=== PATIENT | female | born 1950 | race Caucasian/White ===

== ENCOUNTER → 2018-10-30 | Outpatient (CLI) | payer MEDICARE ==
[2018-10-31 14:29] LABS: Stool Occult Bld Immuno 1 Negative (NEGATIVE)
== END | disposition home or self-care (01) ==
LOC: LAB SHORT 18:20 → LAB 18:20
PROVIDERS: Family Medicine
DX: Z12.11 Encounter for screening for malignant neoplasm of colon (principal)
CPT/HCPCS: G0328

== ENCOUNTER 2021-04-09 04:58 | Inpatient (IN) | payer MEDICARE ==
[~2021-04-09] VITALS: Ht 162.6 cm; Wt 74.4 kg
[2021-04-09 05:28] LABS: BASOPHILS ABSOLUTE AUTO 0.13 K/mm3 (0.00-0.23); BASOPHILS PERCENT AUTO 1 % (0-2); EOSINOPHILS ABSOLUTE AUTO 1.83 K/mm3 (0.00-0.68); EOSINOPHILS PERCENT AUTO 16 % (0-6); Hematocrit 43.2 % (33.0-51.0); IMMATURE GRAN ABSOLUTE AUTO 0.03 K/mm3 (0.00-0.10); IMMATURE GRAN PERCENT AUTO 0 % (0-1); LYMPHOCYTES PERCENT AUTO 33 % (21-46); MONOCYTES ABSOLUTE AUTO 0.83 K/mm3 (0.16-1.47); MONOCYTES PERCENT AUTO 7 % (4-13); Mean Corpuscular HGB 30.5 pg (26.0-34.0); Mean Corpuscular HGB Conc 34.7 g/dL (31.5-36.5); Mean Corpuscular Volume 88 fL (80-100); Mean Platelet Volume 10.9 fL (9.1-12.4); NEUTROPHILS ABSOLUTE AUTO 5.03 K/mm3 (1.96-9.15); NEUTROPHILS PERCENT AUTO 43 % (41-73); Platelet Count 409 K/mm3 (150-400); RDW Coefficient Variation 14.3 % (11.7-14.2); RDW Standard Deviation 46.3 fL (35.1-46.3); Red Blood Cell Count 4.91 M/mm3 (3.80-5.20); White Blood Cell Count 11.65 K/mm3 (4.00-11.30)
[2021-04-09] MEDS ORDERED: Ventolin/Prove6.7 GM INH (05:33)
[2021-04-09] MEDS ORDERED: INCRUSE ELPT62.5MCG (05:34)
[2021-04-09] MEDS ORDERED: EUTHYROX88 MC1 PO (05:34)
[2021-04-09 05:45] LABS: Alanine Aminotransfer (ALT/SGP 26 U/L (12-78); Albumin, Blood 3.8 g/dL (3.4-5.0); Albumin/Globulin Ratio 0.9 (0.8-1.8); Alk Phos 86 U/L (50-136); Anion Gap 9 mmol/L (6-16); Aspartate Aminotrans (AST/SGOT 38 U/L (12-37); Bilirubin, Total 0.5 mg/dL (0.1-1.0); Blood Urea Nitrogen 6 mg/dL (8-24); Bun/Creatinine Ratio 10.9 (12.0-20.0); CO2, Blood 26 mmol/L (21-32); Calcium, Blood 9.6 mg/dL (8.5-10.1); Chloride, Blood 95 mmol/L (98-108); Creatinine, Blood 0.55 mg/dL (0.40-1.00); Globulin, Blood 4.2 g/dL (2.2-4.0); Glomerular Filtration Rate >60 (60-); Glucose, Blood 144 mg/dL (70-99); Potassium, Blood 4.7 mmol/L (3.5-5.5); Sodium, Blood 130 mmol/L (136-145); Troponin I 0.346 ng/mL (0.000-0.040)
[2021-04-09] MEDS ORDERED: Prinivil10 MG PO (05:49)
[2021-04-09 06:21] LABS: Influenza A, PCR NEGATIVE (NEGATIVE); Influenza B, PCR NEGATIVE (NEGATIVE); Resp Syncytial Virus, PCR NEGATIVE (NEGATIVE); SARS-Cov-2 (COVID-19) PCR, MMC NEGATIVE (NEGATIVE)
[2021-04-09 12:00] LABS: Base Excess Venous 0 mmol/L; Bicarbonate Venous 23.8 mmol/L (24.0-30.0); PCO2 Venous 49.2 mmHg (38-42); PO2 Venous 113 mmHg (38-42); pH Blood Venous 7.33 (7.34-7.37)
--- NOTE | 2021-04-09 18:44 | NUR ---
PT ARRIVED THIS AFTERNOON FROM ER WITH ACUTE RESP FAILURE. PT ARRIVES ON 4L 02 VIA NASAL CANNULA, WITH EXTENSIVE WHEEZING NOTED. PT A/O X3, COARSE COUGH NOTED. PT PLACED ON BIPAP UPON ARRIVAL SHE WAS TIRING ON NC. AT THE TIME OF THIS NOTE PT WITH 3L O2 VIA NC. SPO2 >95%. WHEEZING NOTED, PT STS THAT HER BREATHING FEELS "FINE" ON NASAL CANNULA, PT DOES APPEAR TO BE BREATHING EASIER THAN UPON ARRIVAL. PT ABLE TO TRANSFER TO BSC A SBA. VSS. PT WITH SUCTION FOR PRODUCTIVE COUGH.
--- NOTE | 2021-04-09 20:56 | NUR ---
ASSUMED CARE OF PATIENT AT APPROXIMATELY 1905 FROM MINI Coon RN. PATIENT ALERT AND ORIENTED X4; ONE ASSIST TO BSC. PATIENT DENIES PAIN, NUMBNESS, TINGLING, DIZZINESS AND NAUSEA. PATIENT REPORTS SHE HAS TO COUGH UP SPUTUM EVERY TIMES SHE GETS OUT OF BED AND SHORTNESS OF BREATH WORSENS. AUDIBLE WHEEZES HEARD FROM DOOR WAY AND EXP WHEEZES L/S; NO CHANGES FROM ADMIT. PATIENT PLACED BACK ON M-SERIES BIPAP AROUND 1999 FOR SLEEP. PIV S/L. NSR ON TELE; OXYGEN SATURATION ABOVE 90% ON 3LPM VIA NC OR BIPAP.
--- NOTE | 2021-04-09 21:25 | NUR ---
PATIENT CALLED TO REPORT MASK HURTS AND IS TOO MUCH; BACK ON NC; TAKING BREAK.
[2021-04-10 04:05] LABS: BASOPHILS ABSOLUTE AUTO 0.01 K/mm3 (0.00-0.23); BASOPHILS PERCENT AUTO 0 % (0-2); EOSINOPHILS PERCENT AUTO 0 % (0-6); Hematocrit 38.1 % (33.0-51.0); Hemoglobin 13.2 g/dL (11.5-16.0); IMMATURE GRAN ABSOLUTE AUTO 0.02 K/mm3 (0.00-0.10); IMMATURE GRAN PERCENT AUTO 0 % (0-1); LYMPHOCYTES PERCENT AUTO 10 % (21-46); MONOCYTES ABSOLUTE AUTO 0.15 K/mm3 (0.16-1.47); MONOCYTES PERCENT AUTO 1 % (4-13); Mean Corpuscular HGB 30.2 pg (26.0-34.0); Mean Corpuscular HGB Conc 34.6 g/dL (31.5-36.5); Mean Corpuscular Volume 87 fL (80-100); Mean Platelet Volume 10.9 fL (9.1-12.4); NEUTROPHILS ABSOLUTE AUTO 9.35 K/mm3 (1.96-9.15); NEUTROPHILS PERCENT AUTO 88 % (41-73); Platelet Count 341 K/mm3 (150-400); RDW Coefficient Variation 14.6 % (11.7-14.2); RDW Standard Deviation 46.5 fL (35.1-46.3); Red Blood Cell Count 4.37 M/mm3 (3.80-5.20); White Blood Cell Count 10.63 K/mm3 (4.00-11.30)
[2021-04-10 04:35] LABS: Albumin, Blood 3.5 g/dL (3.4-5.0); Anion Gap 9 mmol/L (6-16); Blood Urea Nitrogen 12 mg/dL (8-24); Bun/Creatinine Ratio 17.3 (12.0-20.0); CO2, Blood 26 mmol/L (21-32); Calcium, Blood 9.4 mg/dL (8.5-10.1); Chloride, Blood 96 mmol/L (98-108); Creatinine, Blood 0.69 mg/dL (0.40-1.00); Glomerular Filtration Rate >60 (60-); Glucose, Blood 144 mg/dL (70-99); Phosphorus, Blood 3.3 mg/dL (2.5-4.9); Potassium, Blood 4.3 mmol/L (3.5-5.5); Sodium, Blood 131 mmol/L (136-145)
--- NOTE | 2021-04-10 06:15 | NUR ---
PATIENT SLEPT ABOUT SIX HOURS; HARSE COUGH KEPT PATIENT UP; PRN COUGH MEDICATION HELPED FOR A FEW HOURS. NO OTHER ACUTE CHANGES TO REPORT.
[2021-04-10 08:10] LABS: Bicarbonate Venous 27.9 mmol/L (24.0-30.0); PCO2 Venous 40.1 mmHg (38-42); PO2 Venous 36.6 mmHg (38-42); pH Blood Venous 7.46 (7.34-7.37)
--- NOTE | 2021-04-10 17:50 | NUR ---
PT SUMMARY: PT REMAINS ALERT AND ORIENTED, VITALS HRR SR 70-80'S, BP SYSTOLIC 120-150'S, SATS ABOVE 95% ON 2L OF O2 REMAINS WHEEZY FOR THE SHIFT, BREATHING TX PER RT, PT HAS ALBUTEROL INHALER AT BEDSIDE PER REQUESTS, AFEBRILE. PT DENIES ANY PAIN, GETS UP AND AMBUALATES TO THE BATHROOM SBA. GETS SOB WITH EXERTION. PT FOR POSSIBLE DC IN AM, NO OTHER ISSUES REPORTED, PT ABLE TO MAKE NEEDS KNOWN, CALL LIGHTS IN REACH WILL REPORT TO ONCOMING SHIFT
--- NOTE | 2021-04-10 20:45 | NUR ---
ASSUMED CARE OF PATIENT AT APPROXIMATELY 1905 FROM GABINO Soliman RN. PATIENT ALERT AND ORIENTED X4; ONE ASSIST TO BSC. PATIENT DENIES PAIN, NUMBNESS, TINGLING, DIZZINESS AND NAUSEA. PATIENT REPORTS COUGH BETTER; SOB W/ AMBULATION AND SHORTNESS OF BREATH WORSENS. WHEEZES HEARD FROM DOOR WAY AND EXP WHEEZES L/S. PIV S/L. NSR ON TELE; OXYGEN SATURATION ABOVE 90% ON 1LPM VIA NC.
[2021-04-11 04:28] LABS: Albumin, Blood 3.5 g/dL (3.4-5.0); Anion Gap 10 mmol/L (6-16); Blood Urea Nitrogen 17 mg/dL (8-24); CO2, Blood 25 mmol/L (21-32); Calcium, Blood 9.5 mg/dL (8.5-10.1); Chloride, Blood 96 mmol/L (98-108); Creatinine, Blood 0.71 mg/dL (0.40-1.00); Glomerular Filtration Rate >60 (60-); Glucose, Blood 156 mg/dL (70-99); Potassium, Blood 4.2 mmol/L (3.5-5.5); Sodium, Blood 131 mmol/L (136-145)
--- NOTE | 2021-04-11 05:33 | NUR ---
PATIENT SLEPT ABOUT SEVEN HOURS LAST NIGHT; TITRATED DOWN TO ROOM AIR. PATIENT REPORTS FEELING BETTER; DRAWING AND BORED IN ROOM. NO OTHER ACUTE CHANGES TO REPORT.
[2021-04-11] MEDS ORDERED: Acetaminophen650 M1 PO (11:23)
[2021-04-11] MEDS ORDERED: DIABETIC T100 MG/5 M PO (11:24)
[2021-04-11] MEDS ORDERED: IPRAT-ALBUT 0.5-3 ML INH (11:26)
[2021-04-11] MEDS ORDERED: ALBU2.5V5 INH (11:28)
[2021-04-11] MEDS ORDERED: OMEP20ER PO (11:29)
[2021-04-11] MEDS ORDERED: FLUT1DIS5 INH (11:29)
[2021-04-11] MEDS ORDERED: Prednisone10 MG PO (11:33)
--- NOTE | 2021-04-11 12:21 | NUR ---
PT DISCHARGED TO HOME TODAY WITH DISCHARGE ORDERS. PT WAS ABLE TO AMBULATE AROUND THE UNIT WITHOUT DESATTING, NO C/O OF SOB. VITALS HAS BEEN STABLE. DENIES ANY PAIN. PT TO FF-UP WITH PCP AND MOLD SWABBER WITHIN 2 WEEKS. PRESCRIPTION SENT TO [facility], DISCHARGE INSTRUCTION DISCLOSED WITH THE PT, PT VERBALIZED UNDERSTANDING. ALL BELONGINGS SENT WITH THE PT, PT ACCOMPANIED VIA WHEELCHAIR
== END 2021-04-11 12:07 | disposition home or self-care (01) | DRG 189 ==
LOC: ER 04:58 → ERHOLD 06:21 → PCU 13:09
PROVIDERS: Emergency Medicine; Family Medicine; ADMIT Internal Medicine
PROC: 5A09357 Assistance with Respiratory Ventilation, Less than 24 Consecutive Hours, Continuous Positive Airway Pressure (ICD-10-PCS; principal; 2021-04-09)
DX: J96.21 Acute and chronic respiratory failure with hypoxia (principal); J44.1 Chronic obstructive pulmonary disease with (acute) exacerbation; I16.1 Hypertensive emergency; E87.1 Hypo-osmolality and hyponatremia; I24.8 Other forms of acute ischemic heart disease; E11.9 Type 2 diabetes mellitus without complications; E66.9 Obesity, unspecified; D72.829 Elevated white blood cell count, unspecified; E03.9 Hypothyroidism, unspecified; Z71.6 Tobacco abuse counseling; I10 Essential (primary) hypertension; Z79.899 Other long term (current) drug therapy; F17.200 Nicotine dependence, unspecified, uncomplicated; D75.838 Other thrombocytosis
CPT/HCPCS: 0241U; 36415; 36416; 71045; 80053; 80069; 82803; 82947; 83880; 84484; 85025; 93005; 93010; 93306; 94640; 94644; 94660; 94664; 94760; 94762; 96365; 96366; 96375; 96376; 99285-25; A9270; C9113; J0360; J1650; J2270; J2930; J3475

== ENCOUNTER 2021-05-08 05:39 | Inpatient (IN) | payer MEDICARE ==
[~2021-05-08] VITALS: Ht 154.9 cm; Wt 72.7 kg
[~2021-05-08 05:39] MED LIST: ALBU2.5V5 INH; Acetaminophen650 M1 PO; DIABETIC T100 MG/5 M PO; EUTHYROX88 MC1 PO; FLUT1DIS5 INH; INCRUSE ELPT62.5MCG; IPRAT-ALBUT 0.5-3 ML INH; OMEP20ER PO; Prednisone10 MG PO; Prinivil10 MG PO; Ventolin/Prove6.7 GM INH
[2021-05-08 06:02] LABS: Base Excess Venous 1.5 mmol/L; Bicarbonate Venous 24.7 mmol/L (24.0-30.0); PCO2 Venous 53.6 mmHg (38-42); PO2 Venous 102 mmHg (38-42); pH Blood Venous 7.32 (7.34-7.37)
[2021-05-08 06:06] LABS: BASOPHILS ABSOLUTE AUTO 0.19 K/mm3 (0.00-0.23); BASOPHILS PERCENT AUTO 1 % (0-2); EOSINOPHILS ABSOLUTE AUTO 1.13 K/mm3 (0.00-0.68); EOSINOPHILS PERCENT AUTO 7 % (0-6); Hematocrit 44.2 % (33.0-51.0); Hemoglobin 14.7 g/dL (11.5-16.0); IMMATURE GRAN ABSOLUTE AUTO 0.09 K/mm3 (0.00-0.10); IMMATURE GRAN PERCENT AUTO 1 % (0-1); LYMPHOCYTES ABSOLUTE AUTO 5.73 K/mm3 (0.84-5.20); LYMPHOCYTES PERCENT AUTO 33 % (21-46); MONOCYTES ABSOLUTE AUTO 1.11 K/mm3 (0.16-1.47); MONOCYTES PERCENT AUTO 6 % (4-13); Mean Corpuscular HGB 30.4 pg (26.0-34.0); Mean Corpuscular HGB Conc 33.3 g/dL (31.5-36.5); Mean Corpuscular Volume 92 fL (80-100); Mean Platelet Volume 10.6 fL (9.1-12.4); NEUTROPHILS ABSOLUTE AUTO 9.06 K/mm3 (1.96-9.15); NEUTROPHILS PERCENT AUTO 52 % (41-73); Platelet Count 411 K/mm3 (150-400); RDW Standard Deviation 50.3 fL (35.1-46.3); Red Blood Cell Count 4.83 M/mm3 (3.80-5.20); White Blood Cell Count 17.31 K/mm3 (4.00-11.30)
[2021-05-08 06:31] LABS: Alanine Aminotransfer (ALT/SGP 24 U/L (12-78); Albumin, Blood 3.8 g/dL (3.4-5.0); Albumin/Globulin Ratio 0.9 (0.8-1.8); Alk Phos 88 U/L (50-136); Anion Gap 7 mmol/L (6-16); Aspartate Aminotrans (AST/SGOT 17 U/L (12-37); Bilirubin, Total 0.4 mg/dL (0.1-1.0); Blood Urea Nitrogen 11 mg/dL (8-24); Bun/Creatinine Ratio 16.5 (12.0-20.0); CO2, Blood 27 mmol/L (21-32); Calcium, Blood 9.7 mg/dL (8.5-10.1); Chloride, Blood 103 mmol/L (98-108); Creatinine, Blood 0.67 mg/dL (0.40-1.00); Globulin, Blood 4.2 g/dL (2.2-4.0); Glomerular Filtration Rate >60 (60-); Glucose, Blood 176 mg/dL (70-99); Sodium, Blood 137 mmol/L (136-145); Troponin I 0.214 ng/mL (0.000-0.040)
[2021-05-08 08:28] LABS: Influenza A, PCR NEGATIVE (NEGATIVE); Influenza B, PCR NEGATIVE (NEGATIVE); Resp Syncytial Virus, PCR NEGATIVE (NEGATIVE); SARS-Cov-2 (COVID-19) PCR, MMC NEGATIVE (NEGATIVE)
[2021-05-08 09:01] LABS: CHOL/HDL RATIO 2.2; Cholesterol 244 mg/dL (50-200); HDL Cholesterol 110 mg/dL (>39); Low Density Lipoprotein Chol 113 mg/dL (0-110); Triglycerides 104 mg/dL (30-160); Very Low Density Lipoprot Chol 20 mg/dL (6-32)
[2021-05-08] MEDS ORDERED: VITAMIN D31000 UNI1 PO (17:10)
[2021-05-08] MEDS ORDERED: CALCIUM 600 +1 EA11 PO (17:10)
--- NOTE | 2021-05-08 17:44 | NUR ---
ARRIVAL TO PCU/SHIFT SUMMARY PATIENT ARRIVED VIA GURNY AND RANSPORTED TO PCU BED BY A STAND BY ASSIST. VSS. TELE SR AT 64. SPO2 >90% ON BIPAP / 30%. PATIENT REPORTS NO CHEST PAIN, PAIN, SOB. CALL LIGHT WITHIN REACH AND BED IN LOWEST POSITION. PATIENT IS CURRENTLY EATING DINNER AND IN 3L NC AND SPO2 >90%. WILL CONTINUE TO MONITOR AND PROVIDE CARE UNTIL SHIFT CHANGE.
--- NOTE | 2021-05-08 21:53 | NUR ---
ASSUMED CARE OF PATIENT AT APPROXIMATELY 1900 FROM MINI Barton RN. PATIENT ALERT AND ORIENTED X4; FORGETFUL AT TIMES; SBA DUE TO CORDS/LINES. PATIENT DENIES PAIN, NUMBNESS, TINGLING, DIZZINESS AND NAUSEA. NSR ON TELE; OXYGEN SATURATION ABOVE 90% ON 3LPM VIA NC OR BIPAP; PATIENT REPORTS SHE DOESNT WANT TO USE BIPAP UNLESS SHE NEEDS TO BECAUSE IT WILL KEEP HER AWAKE. PIV X2 S/L. FEELS SHORT OF BREATH WITH MOVEMENT OR AMBULATION; AUDIBLE WHEEZES HEARD INTO HALLWAY AT TIMES.
--- NOTE | 2021-05-09 05:55 | NUR ---
PATIENT SLEPT ABOUT EIGHT HOURS LAST NIGHT; TITRATED DOWN TO 2LPM VIA NC. NO OTHER ACUTE CHANGES TO REPORT.
[2021-05-09 06:19] LABS: BASOPHILS ABSOLUTE AUTO 0.02 K/mm3 (0.00-0.23); BASOPHILS PERCENT AUTO 0 % (0-2); EOSINOPHILS PERCENT AUTO 0 % (0-6); Hematocrit 37.9 % (33.0-51.0); Hemoglobin 12.7 g/dL (11.5-16.0); IMMATURE GRAN ABSOLUTE AUTO 0.06 K/mm3 (0.00-0.10); IMMATURE GRAN PERCENT AUTO 0 % (0-1); LYMPHOCYTES ABSOLUTE AUTO 1.34 K/mm3 (0.84-5.20); LYMPHOCYTES PERCENT AUTO 10 % (21-46); MONOCYTES ABSOLUTE AUTO 0.24 K/mm3 (0.16-1.47); MONOCYTES PERCENT AUTO 2 % (4-13); Mean Corpuscular HGB 30.7 pg (26.0-34.0); Mean Corpuscular HGB Conc 33.5 g/dL (31.5-36.5); Mean Corpuscular Volume 92 fL (80-100); Mean Platelet Volume 10.8 fL (9.1-12.4); NEUTROPHILS ABSOLUTE AUTO 11.96 K/mm3 (1.96-9.15); NEUTROPHILS PERCENT AUTO 88 % (41-73); Platelet Count 362 K/mm3 (150-400); RDW Standard Deviation 50.5 fL (35.1-46.3); Red Blood Cell Count 4.14 M/mm3 (3.80-5.20); White Blood Cell Count 13.62 K/mm3 (4.00-11.30)
[2021-05-09 07:00] LABS: Troponin I 0.348 ng/mL (0.000-0.040)
[2021-05-09 07:01] LABS: Alanine Aminotransfer (ALT/SGP 20 U/L (12-78); Albumin, Blood 3.2 g/dL (3.4-5.0); Alk Phos 69 U/L (50-136); Anion Gap 9 mmol/L (6-16); Aspartate Aminotrans (AST/SGOT 16 U/L (12-37); Bilirubin, Total 0.3 mg/dL (0.1-1.0); Blood Urea Nitrogen 15 mg/dL (8-24); Bun/Creatinine Ratio 21.3 (12.0-20.0); CO2, Blood 25 mmol/L (21-32); Calcium, Blood 9.3 mg/dL (8.5-10.1); Chloride, Blood 102 mmol/L (98-108); Globulin, Blood 3.2 g/dL (2.2-4.0); Glomerular Filtration Rate >60 (60-); Glucose, Blood 157 mg/dL (70-99); Potassium, Blood 4.5 mmol/L (3.5-5.5); Sodium, Blood 136 mmol/L (136-145); Total Protein, Blood 6.4 g/dL (6.4-8.2)
--- NOTE | 2021-05-09 07:45 | NUR ---
CARE ASSUMPTION PATIENT IS A/OX4. VSS. SPO2 >90% ON 1L NC. TELE SR 70S. PATIENT REPORTS NO CHEST PAIN, PAIN, OR SHORTNESS OF BREATH. PATIENT IS SITTING IN BED EATING BREAKFAST. CALL LIGHT WITHIN REACH AND BED IN LOWEST POSITION. WILL CONTINUE TO MONITOR AND PROVIDE CARE.
--- NOTE | 2021-05-09 17:22 | NUR ---
SHIFT SUMMARY PATIENT HAS HAD NO ACUTE CHANGES DURING THIS SHIFT. PATIENT IS A/OX4. VSS. MED NO TELE STATUS. SPO2 >90% ON RA. PATIENT HAS AN SLIGHT AUDITORY EXPIRATORY WHEEZE THAT YOU CAN HEAR WHEN TALKING WITH THE PATIENT. PATIENT REPORTS NO PAIN, CHEST PAIN, OR SHORTNESS OF BREATH. PATIENT IS INDEPDENENT IN THE ROOM AND CALLS WHEN GETTING UP FOR SUPERVISION. CALL LIGHT WITHIN REACH AND BED IN LOWEST POSITION. WILL CONTINUE TO MONITOR AND PROVIDE CARE UNTIL HAND OFF WITH NEXT SHIFT.
--- NOTE | 2021-05-09 22:09 | NUR ---
ASSUMED CARE OF PATIENT AT 1900. A/OX4. REPORTS DYSPNEA W/ACTIVITY. MAINTAINS ABOVE 90% ON RA. EXPIRATORY WHEEZES HEARD T/O ALL LUNG BARRY. CONGESTED COUGH CAN BE HEARD. REPORTS NO CP/PRESSURE. REPORTS ACID REFLUX WHICH HAPPENS TO HER AT NIGHT. TRACE BLE EDEMA. WILL UPDATE CHANGES OCCUR.
--- NOTE | 2021-05-10 00:47 | NUR ---
TRANSFER ASSUMED CARE OF PT AT 0018, PT TRANSFERRED FROM PCU TO ROOM 329. REPORT TAKEN FROM APPLICATIONS ARCHITECT. PT TRANSFERRED WITH BELONGINGS IN PLACE, PT WITHOUT DISTRESS, DENIES NEEDS. A/OX4.
[2021-05-10 05:26] LABS: Hematocrit 39.9 % (33.0-51.0); Hemoglobin 13.4 g/dL (11.5-16.0); Mean Corpuscular HGB 30.5 pg (26.0-34.0); Mean Corpuscular HGB Conc 33.6 g/dL (31.5-36.5); Mean Corpuscular Volume 91 fL (80-100); Mean Platelet Volume 10.7 fL (9.1-12.4); Platelet Count 298 K/mm3 (150-400); RDW Standard Deviation 49.9 fL (35.1-46.3); White Blood Cell Count 14.09 K/mm3 (4.00-11.30)
--- NOTE | 2021-05-10 05:27 | NUR ---
SHIFT SUMMARY PT PCU TRANSFER THIS SHIFT, PT HAS RESTED SINCE TRANSFER AND HAS DENIED NEEDS. SHE IS INDEPENDENT IN THE ROOM AND MAKES NEEDS KNOWN. VITALS STABLE. RESP E/U ON RA WITHOUT RESPIRATORY DISTRESS. NO ACUTE CHANGES OVERNIGHT, BED IN LOWEST POSITION, CALL LIGHT WITHIN REACH.
[2021-05-10 06:13] LABS: Alanine Aminotransfer (ALT/SGP 22 U/L (12-78); Albumin, Blood 3.3 g/dL (3.4-5.0); Alk Phos 68 U/L (50-136); Anion Gap 10 mmol/L (6-16); Aspartate Aminotrans (AST/SGOT 13 U/L (12-37); Bilirubin, Total 0.4 mg/dL (0.1-1.0); Blood Urea Nitrogen 15 mg/dL (8-24); CO2, Blood 24 mmol/L (21-32); Calcium, Blood 9.5 mg/dL (8.5-10.1); Chloride, Blood 103 mmol/L (98-108); Creatinine, Blood 0.68 mg/dL (0.40-1.00); Globulin, Blood 3.2 g/dL (2.2-4.0); Glomerular Filtration Rate >60 (60-); Glucose, Blood 140 mg/dL (70-99); Potassium, Blood 4.3 mmol/L (3.5-5.5); Sodium, Blood 137 mmol/L (136-145); Total Protein, Blood 6.5 g/dL (6.4-8.2)
[2021-05-10] MEDS ORDERED: AZIT250 PO (11:34)
[2021-05-10] MEDS ORDERED: ASPI81CH PO (11:34)
[2021-05-10] MEDS ORDERED: MONT10T PO (11:35)
[2021-05-10] MEDS ORDERED: GUAI600T33 PO (11:35)
[2021-05-10] MEDS ORDERED: PRED20 PO (11:41)
--- NOTE | 2021-05-10 12:28 | NUR ---
DISCHARGE SUMMARY: PT A/O X 4 AT TIME OF DISCHARGE. DISCUSSED DISCHARGE INSTRUCTIONS WITH PT. PT ALREADY HAS F/UP APPT WITH DR. BOYER ON 05/24/21 SCHEDULED FOR FOLLOW-UP. EDUCATED ON MEDICATION REGIMEN. FAXED MEDICATION SCRIPTS TO [facility]. PT ESCORTED TO POV VIA WC BY [facility].
== END 2021-05-10 12:35 | disposition home or self-care (01) | DRG 189 ==
LOC: ER 05:39 → ERHOLD 08:18 → PCU 16:47 → MEDS 05-10 00:30 → ENPENDDIS 05-10 10:25 → MEDS 05-10 12:35
PROVIDERS: Emergency Medicine; ADMIT Internal Medicine
PROC: 5A09357 Assistance with Respiratory Ventilation, Less than 24 Consecutive Hours, Continuous Positive Airway Pressure (ICD-10-PCS; principal; 2021-05-08)
DX: J96.01 Acute respiratory failure with hypoxia (principal); J44.1 Chronic obstructive pulmonary disease with (acute) exacerbation; E87.1 Hypo-osmolality and hyponatremia; Z20.822 Contact with and (suspected) exposure to COVID-19; E78.5 Hyperlipidemia, unspecified; E03.9 Hypothyroidism, unspecified; I10 Essential (primary) hypertension; I16.0 Hypertensive urgency; J44.9 Chronic obstructive pulmonary disease, unspecified; Z79.899 Other long term (current) drug therapy; F17.210 Nicotine dependence, cigarettes, uncomplicated
CPT/HCPCS: 0241U; 36415; 71045; 80053; 80061; 82803; 83036; 83880; 84145; 84484; 85025; 85027; 93005; 93010; 94640; 94644; 94660; 94664; 94762; 96372-59; 96374; 96376; 99285-25; A9270; J1650; J2930

== ENCOUNTER → 2021-12-01 | Outpatient (CLI) | payer MEDICARE ==
[~2021-12-01] MED LIST changes: +ASPI81CH PO; +AZIT250 PO; +CALCIUM 600 +1 EA11 PO; +GUAI600T33 PO; +MONT10T PO; +PRED20 PO; +VITAMIN D31000 UNI1 PO
[2021-12-03 09:38] LABS: Stool Occult Bld Immuno 1 Negative (NEGATIVE)
== END | disposition home or self-care (01) ==
LOC: LAB SHORT 16:49
PROVIDERS: Student in an Organized Health Care Education/Training Program
DX: Z12.11 Encounter for screening for malignant neoplasm of colon (principal)
CPT/HCPCS: G0328

== ENCOUNTER → 2025-01-24 | Outpatient (CLI) | payer MEDICARE ==
[2025-01-24 19:23] LABS: BASOPHILS ABSOLUTE AUTO 0.12 K/mm3 (0.00-0.23); BASOPHILS PERCENT AUTO 1 % (0-2); EOSINOPHILS ABSOLUTE AUTO 0.65 K/mm3 (0.00-0.68); EOSINOPHILS PERCENT AUTO 6 % (0-6); Hematocrit 41.7 % (33.0-51.0); Hemoglobin 14.2 g/dL (11.5-16.0); IMMATURE GRAN ABSOLUTE AUTO 0.02 K/mm3 (0.00-0.10); IMMATURE GRAN PERCENT AUTO 0 % (0-1); LYMPHOCYTES ABSOLUTE AUTO 3.09 K/mm3 (0.84-5.20); LYMPHOCYTES PERCENT AUTO 29 % (21-46); MONOCYTES ABSOLUTE AUTO 0.66 K/mm3 (0.16-1.47); MONOCYTES PERCENT AUTO 6 % (4-13); Mean Corpuscular HGB Conc 34.1 g/dL (31.5-36.5); Mean Corpuscular Volume 90 fL (80-100); NEUTROPHILS ABSOLUTE AUTO 5.96 K/mm3 (1.96-9.15); NEUTROPHILS PERCENT AUTO 57 % (41-73); NRBC ABSOLUTE 0.00 K/mm3 (0.00-0.02); NRBC Auto 0.0 /100 WBC (0.0-0.2); Platelet Count 299 K/mm3 (150-400); RDW Coefficient Variation 14.4 % (11.7-14.2); RDW Standard Deviation 47.7 fL (35.1-46.3)
[2025-01-24 20:23] LABS: Alanine Aminotransfer (ALT/SGP 34 U/L (12-78); Albumin, Blood 3.8 g/dL (3.4-5.0); Albumin/Globulin Ratio 1.1 (0.8-1.8); Anion Gap 9 mmol/L (3-11); Aspartate Aminotrans (AST/SGOT 22 U/L (12-37); Bilirubin, Total 0.4 mg/dL (0.1-1.0); Blood Urea Nitrogen 8 mg/dL (8-24); CHOL/HDL RATIO 2.7; CO2, Blood 25 mmol/L (21-32); Calcium, Blood 9.3 mg/dL (8.5-10.1); Chloride, Blood 104 mmol/L (98-108); Cholesterol 229 mg/dL (50-200); Creatinine, Blood 0.57 mg/dL (0.40-1.00); Globulin, Blood 3.6 g/dL (2.2-4.0); Glucose, Blood 112 mg/dL (70-99); HDL Cholesterol 85 mg/dL (>39); LDL/HDL RATIO 1.4; Low Density Lipoprotein Chol 121 mg/dL (0-110); Potassium, Blood 3.9 mmol/L (3.5-5.5); Sodium, Blood 134 mmol/L (136-145); Thyroid Stimulating Hormone 1.130 uIU/mL (0.360-4.800); Total Protein, Blood 7.4 g/dL (6.4-8.2); Triglycerides 114 mg/dL (30-160); Very Low Density Lipoprot Chol 22 mg/dL (6-32)
== END ==
LOC: LAB SHORT 19:12 → LAB 19:12
PROVIDERS: Student in an Organized Health Care Education/Training Program
DX: I10 Essential (primary) hypertension (principal); E03.9 Hypothyroidism, unspecified; R73.03 Prediabetes; J44.9 Chronic obstructive pulmonary disease, unspecified
CPT/HCPCS: 80053; 80061; 83036; 84443; 85025